=== PATIENT | female | born 1980 | race Caucasian/White ===

== ENCOUNTER 2018-09-11 04:23 | Emergency (ER) | payer OTHER ==
[2018-09-11 06:09] LABS: #Basophils 0.1 thou/uL (0.0-0.2); #Eosinphils 0.2 thou/uL (0.0-0.7); #Lymphocytes 1.3 thou/uL (1.20-3.40); #Monocytes 0.5 thou/uL (0.11-0.59); #Neutrophils 7.3 thou/uL (1.40-6.50); %Basophils 0.6 % (0.0-1.0); %Eosinophils 2.1 % (0.0-10.0); %Lymphocytes 13.7 % (21.0-51.0); %Monocytes 5.3 % (0.0-10.0); %Neutrophils 78.3 % (42.0-75.0); Hemoglobin 12.8 g/dL (12.0-16.0); Mean Corpuscular HGB CONC 34.5 g/dL (32.0-36.0); Mean Corpuscular Hemoglobin 31.6 pg (27.0-31.0); Mean Corpuscular Volume 91.4 fL (78.0-98.0); Mean Platelet Volume 7.3 fL (7.4-10.4); Platelet Count 219 thou/uL (130-400); RBC Distribution Width 12.4 % (11.5-14.5); Red Blood Cell (RBC) Count 4.06 mill/uL (4.20-5.40); White Blood Cell (WBC) Count 9.3 thou/uL (4.8-10.8)
[2018-09-11 06:30] LABS: ALT (SGPT) 21 U/L (8-55); AST (SGOT) 37 U/L (5-34); Albumin 3.7 g/dL (3.5-5.0); Alkaline Phosphatase 42 U/L (40-150); Anion Gap 9 mmol/L (10-20); BUN (Urea Nitrogen) 8 mg/dL (7.0-18.7); Bilirubin, Total 0.3 mg/dL (0.2-1.2); Calc. Creatinine Clearance 0 mL/min (70-130); Calcium 9.1 mg/dL (7.8-10.44); Carbon Dioxide 25 mmol/L (22-29); Chloride 104 mmol/L (98-107); Estimated GFR-MDRD Greater than 90; Globulin 2.4 g/dL (2.4-3.5); Glucose 86 mg/dL (70-105); Protein, Total 6.1 g/dL (6.0-8.3); Sodium 134 mmol/L (136-145)
[2018-09-11 07:31] LABS: Bilirubin Negative (Negative); Blood, Urine Negative (Negative); Clarity CLEAR (Clear); Glucose, Urine (Dipstick) Negative (Negative); Leukocyte Negative (Negative); Nitrite Negative (Negative); Protein, Urine (Dipstick) Negative (Neg-Trace); Urobilinogen 0.2 mg/dL (0.2-1.0)
[2018-09-11] MEDS ORDERED: Sucralfate 1 GM/10 ML UDCUP ONE (07:43)
--- NOTE | 2018-09-11 08:12 | ULT ---
OBSTETRICAL ULTRASOUND: INDICATION: Pelvic cramping and pain without bleeding. COMPARISON: None. FINDINGS: There is a single live intrauterine gestation in vertex presentation. Placenta is posterior in locat ion without evidence of previa. SANTIAGO appeared adequate. Cardiac activity is noted at 140 b.p.m. Limited survey of the stomach, heart, cord insertion, 3-vessel cord, and spine appear within no rmal limits. The cervical length was 3.5 cm. Estimated weight is 225 gm. IMPRESSION: 1. Single live intrauterine gestation. 2. Limited survey. Recommend a followup full survey in 2 weeks to fully evaluate the fe varun anatomy. 3. Estimated gestational age by ultrasound is 18 weeks and 0 days. Estimated due date 02/12/2019. POS: JUAN J
== END 2018-09-11 08:13 | disposition home or self-care (01) ==
LOC: ERS 04:23
DX: O09.522 Supervision of elderly multigravida, second trimester (principal); O99.89 Other specified diseases and conditions complicating pregnancy, childbirth and the puerperium; R10.31 Right lower quadrant pain; R10.32 Left lower quadrant pain; Z3A.18 18 weeks gestation of pregnancy
CPT/HCPCS: 36415; 76856; 80053; 81003; 83690; 85025; 86900; 86901; 93976

== ENCOUNTER 2018-10-02 12:31 | Day surgery (SDC) | payer OTHER ==
[~2018-10-02 12:31] MED LIST: Bupivacaine 0.25% HCL 30 ML VIAL ONE
--- NOTE | 2018-10-02 13:40 | HP ---
TIME OF EVALUATION: 1310 hours. REASON FOR EVALUATION: Profuse vaginal bleeding at 21 weeks. This is a patient of Dr. Shaw. HISTORY OF PRESENT ILLNESS: This is a 38-year-old, G5, P2, SAB 2, with a history of at 35 and 36 weeks. By EDC, she is now 21 weeks. This morning at 1100 hours, she was having intercourse with her and intercourse was interrupted by profuse vaginal bleeding. There were no contractions, no rupture of membranes, and no fever. The patient denies previous occurrence. She has no lightheadedness or loss of consciousness. She denies physical trauma/abuse by . When she arrived to the ER, she was still having profuse vaginal bleeding. PAST MEDICAL HISTORY: Negative. PAST SURGICAL HISTORY: Tonsils and adenoids and ACL. SOCIAL HISTORY: Negative for alcohol, tobacco, or drug use. OB HISTORY: Significant for prior vaginal deliveries that were early at 35 and 36 weeks. 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 ALLERGIES: TO CODEINE. REVIEW OF SYSTEMS: Complete review of systems was drawn and is otherwise complete and is only positive as stated in the HPI. PHYSICAL EXAMINATION: VITAL SIGNS: Blood pressure is 118/58, pulse 72, O2 saturation is 97%, and temperature is 98.2. GENERAL: She is in no acute distress and there was no active vaginal bleeding at this time. : Vaginal exam was deferred as we are unclear about placental location. ASSESSMENT: This is a 38-year-old, G5, P2, with a history of at 35 and 36 weeks (late ) with intercourse induced vaginal bleeding (vaginal intercourse). PLAN: 1. Stat OB ultrasound for placental location. 2. Stat H and H. 3. IV fluid hydration. 4. Type and cross and Rh type. 5. Check cervical length. Since we cannot assess her cervix digitally/by hand, we will use a surrogate, which is the ultrasound, to look for dilation, prolapsing membranes, or a short cervix. 6. Expectant management for now. 7. I suspect based on the history that she may have a low-lying/previa based on irritation of the cervix with intercourse. For now, we are awaiting stat lab work and ultrasound to guide further management. Job ID: [id number]
[2018-10-02 13:44] LABS: Hemoglobin 12.2 g/dL (12.0-16.0); Mean Corpuscular HGB CONC 34.2 g/dL (32.0-36.0); Mean Corpuscular Hemoglobin 31.9 pg (27.0-31.0); Mean Corpuscular Volume 93.2 fL (78.0-98.0); Mean Platelet Volume 7.4 fL (7.4-10.4); Platelet Count 206 thou/uL (130-400); RBC Distribution Width 12.3 % (11.5-14.5); Red Blood Cell (RBC) Count 3.81 mill/uL (4.20-5.40); White Blood Cell (WBC) Count 10.1 thou/uL (4.8-10.8)
[2018-10-02 14:30] VITALS: BMI 25.5
--- NOTE | 2018-10-02 15:02 | PDOC.EVN ---
Event Note - Event Note Event Note: At 1445: L&D triage Bedside eval after sono. Sono with no previa (post placenta); CX length was 3.1 cm No active VB now I performed SSE after procedure explained. partner also present for SSE SSE with no evidence LOF, VB, CX grossly closed, no lacerations in vaginal murcia. I helped the partner see the cervix as I explained what "normal was" No evidence PTL or jeopardy. RH type pos (A+) OK for home care DX: Postcoital bleed, NOS
--- NOTE | 2018-10-02 16:08 | ULT ---
OBSTETRIC SONOGRAM: HISTORY: Second trimester gestation. Vaginal bleeding. FINDINGS: Multiple transabdominal sonographic images. Single intrauterine gestation in cephalic presentation. Cervix closed and 4.0 cm. No evidence of previa. Grade 0 placenta is posterior. Amniotic fluid is within normal limits. spine and kidneys are intact as visualized. No gross intracranial abnormalities apparent. Four-chamber heart shows motion at 147 b.p.m. Three-vessel cord shows a normal insertion. Measurements are as follows: BIPARIETAL DIAMETER 22 weeks 2 days HEAD CIRCUMFERENCE 21 weeks 4 days ABDOMINAL CIRCUMFERENCE 21 weeks 1 day FEMUR LENGTH 20 weeks 3 days Estimated date of delivery based on today's sonogram 02/10/2019. [place] 44th percentile. IMPRESSION: Single viable intrauterine gestation with estimated gestational age based on today's sonogram of 21 w eeks 2 days. POS: JAZLYN
== END 2018-10-02 15:00 | disposition home health service (06) ==
LOC: L&D/OP 12:31
PROVIDERS: ATTEND Obstetrics & Gynecology
DX: O46.92 Antepartum hemorrhage, unspecified, second trimester (principal); Z3A.21 21 weeks gestation of pregnancy; Z90.89 Acquired absence of other organs; Z88.5 Allergy status to narcotic agent; Z79.899 Other long term (current) drug therapy; Z98.890 Other specified postprocedural states
CPT/HCPCS: 36415; 76805; 85027; 86900; 86901; 99283; S0020

== ENCOUNTER 2018-12-08 15:52 | Observation (INO) | payer OTHER ==
[2018-12-08] MEDS ORDERED: Ondansetron PF 4 MG/2 ML Vial IVP PRN (16:12)
[2018-12-08] MEDS ORDERED: Promethazine HCl 25 MG/ML VIAL IM PRN (16:12)
[2018-12-08] MEDS ORDERED: Dextrose 5%-Lactated Ringers 1,000 ML IV SCH (16:15)
[2018-12-08 16:29] VITALS: BMI 27.4
[2018-12-08] MEDS ORDERED: NIFEdipine XL 30 MG TAB PO SCH (16:30)
[2018-12-08 16:44] VITALS: BP 110/56; TEMP 98.2
[2018-12-08] MEDS ORDERED: hydrOXYzine Pamoate 25 mg Capsule PO SCH (18:30)
[2018-12-08 21:04] LABS: Bilirubin Negative (Negative); Blood, Urine Negative (Negative); Clarity CLEAR (Clear); Glucose, Urine (Dipstick) Negative (Negative); Leukocyte Negative (Negative); Nitrite Negative (Negative); Protein, Urine (Dipstick) Negative (Neg-Trace); Specific Gravity, Urine 1.012 (1.002-1.036)
[2018-12-08 21:06] LABS: Bacteria/HPF None Seen HPF (None Seen); Hyaline Casts/LPF 0-3 HYALINE CAST LPF (0-3 Hyaline); Pathc Cast-AUWi Flag 0.27 (0-2.49); RBC/HPF 0-3 HPF (0-3); Squamous Epithelial 0-3 HPF (0-3); WBC/HPF 0-3 HPF (0-3)
[2018-12-09] MEDS ORDERED: NIFEdipine XL 30 MG TAB PO SCH (09:00)
== END 2018-12-09 08:20 | disposition home health service (06) ==
LOC: L&D/OP 15:52 → L&D 18:19
PROVIDERS: ADMIT Obstetrics & Gynecology; ATTEND Obstetrics & Gynecology
DX: O47.03 False labor before 37 completed weeks of gestation, third trimester (principal); O09.513 Supervision of elderly primigravida, third trimester; Z3A.30 30 weeks gestation of pregnancy; Z79.899 Other long term (current) drug therapy; Z88.5 Allergy status to narcotic agent
CPT/HCPCS: 81001; 96360; 96361; G0378; Q0177

== ENCOUNTER 2019-01-20 09:45 | Inpatient (IN) | payer OTHER ==
[2019-01-20] MEDS ORDERED: Carboprost 250 MCG/ML AMP IM PRN (10:25)
[2019-01-20] MEDS ORDERED: Promethazine HCl 25 MG/ML VIAL IM PRN ×2 (10:25→15:10)
[2019-01-20] MEDS ORDERED: Ondansetron PF 4 MG/2 ML Vial IVP PRN ×3 (10:25→19:05)
[2019-01-20] MEDS ORDERED: Lidocaine 1% (PF) 30 ML VIAL SC PRN (10:25)
[2019-01-20] MEDS ORDERED: Ibuprofen 800 MG TAB PO PRN (10:25)
[2019-01-20] MEDS ORDERED: Diphenoxylate HCl/Atropine Tablet PO PRN (10:25)
[2019-01-20] MEDS ORDERED: Misoprostol 200 MCG TAB PR PRN (10:25)
[2019-01-20] MEDS ORDERED: NS / Oxytocin 40 units/1000ml 1,000 ML IV PRN (10:25)
[2019-01-20] MEDS ORDERED: Acetaminophen 500 MG TAB PO PRN (10:25)
[2019-01-20] MEDS ORDERED: Meperidine HCl/PF 25 MG/ML VIAL IM/IV PRN (10:25)
[2019-01-20] MEDS ORDERED: Methylergonovine 0.2 MG/ML VIAL IM PRN (10:25)
[2019-01-20] MEDS ORDERED: Fentanyl 4 mcg/Bup 0.1% Cadd 100 ML ONE (11:00)
[2019-01-20 11:02] LABS: Hemoglobin 12.6 g/dL (12.0-16.0); Mean Corpuscular HGB CONC 34.1 g/dL (32.0-36.0); Mean Corpuscular Hemoglobin 29.6 pg (27.0-31.0); Mean Corpuscular Volume 86.9 fL (78.0-98.0); Mean Platelet Volume 8.4 fL (7.4-10.4); Platelet Count 201 thou/uL (130-400); RBC Distribution Width 12.2 % (11.5-14.5); Red Blood Cell (RBC) Count 4.25 mill/uL (4.20-5.40); White Blood Cell (WBC) Count 8.4 thou/uL (4.8-10.8)
[2019-01-20] MEDS: Lactated Ringer's 1,000 ML IV SCH ×2 (11:26→13:58)
[2019-01-20] MEDS ORDERED: Fentanyl 100 MCG/2 ML VIAL ONE (11:33)
[2019-01-20] MEDS ORDERED: Fentanyl 100 MCG/2 ML VIAL EPIDURAL ONE (11:45)
[2019-01-20 11:49] LABS: HBSAg Index 0.26 S/CO (0-0.99); Hep B Surf Ag Non-Reactive S/CO (NonReactive); Syphilis Antibody Nonreactive (Nonreactive); Syphilis Antibody Index 0.05 S/CO (<1.00 Non-Reactive)
[2019-01-20 12:34] VITALS: BMI 27.8
[2019-01-20] MEDS ORDERED: NS w/ Oxytocin 10 units 500 ML ONE (14:04)
[2019-01-20] MEDS ORDERED: NS w/ Oxytocin 10 units 500 ML IV SCH (14:15)
[2019-01-20] MEDS ORDERED: ePHEDrine/0.9% NaCl/PF SYRINGE 50 mg/10 ml ONE (15:00)
[2019-01-20] MEDS ORDERED: Bupivacaine 0.25% HCL 30 ML VIAL ONE (15:00)
[2019-01-20] MEDS ORDERED: Acetaminophen 325 MG TAB PO PRN (15:10)
[2019-01-20] MEDS ORDERED: diphenhydrAMINE 50 MG/ML VIAL IVP PRN (15:10)
[2019-01-20] MEDS ORDERED: Naloxone HCl 0.4 mg/ml Vial IVP PRN ×2 (15:10)
[2019-01-20] MEDS ORDERED: ePHEDrine/0.9% NaCl/PF SYRINGE 50 mg/10 ml SLOW IVP PRN (15:10)
[2019-01-20] MEDS ORDERED: Lactated Ringer's 500 ML IV PRN (15:10)
[2019-01-20] MEDS ORDERED: Fentanyl 4 mcg/Bupivacaine 0.1% Cassette 100 ML EPIDURAL SCH (15:15)
[2019-01-20] MEDS ORDERED: Communication Order-Pharmacy FS SCH (15:15)
[2019-01-20] MEDS ORDERED: Misoprostol 200 MCG TAB VAG PRN (19:05)
[2019-01-20] MEDS ORDERED: diphenhydrAMINE 25 MG CAP PO PRN (19:05)
[2019-01-20] MEDS ORDERED: hydrALAZINE 20 MG/ML VIAL SLOW IVP PRN (19:05)
[2019-01-20] MEDS ORDERED: Zolpidem Tartrate 5 MG TAB PO PRN (19:05)
[2019-01-20] MEDS ORDERED: Acetaminophen/Codeine 30-300mg Tablet PO PRN (19:05)
[2019-01-20] MEDS ORDERED: Bisacodyl 10 MG SUPP PR PRN (19:05)
[2019-01-20] MEDS ORDERED: Lanolin Ointment 7 GM TUBE TOP PRN (19:05)
[2019-01-20] MEDS ORDERED: Preparation H Ointment 28 GM TUBE PR PRN (19:05)
[2019-01-20] MEDS ORDERED: Milk Of Magnesia 30 ML UDCUP PO PRN (19:05)
[2019-01-20] MEDS ORDERED: Benzocaine-Menthol 82.5 ML CAN TOP PRN (19:05)
[2019-01-20] MEDS ORDERED: Adacel (T-DAP) 0.5 ML SYRINGE IM ONE (19:05)
[2019-01-20] MEDS ORDERED: traMADol HCl 50 MG TAB PO PRN (19:06)
[2019-01-20] MEDS ORDERED: NS / Oxytocin 40 units/1000ml 1,000 ML IV SCH (19:15)
[2019-01-21] MEDS ORDERED: Ibuprofen 800 MG TAB ONE (03:52)
[2019-01-21] MEDS: Ibuprofen 800 MG TAB PO SCH ×4 (10:40→21:10)
[2019-01-21] MEDS: Docusate Calcium (SURFAK) 240 MG CAP PO SCH ×3 (10:40→21:10)
[2019-01-21] MEDS: Ferrous Sulfate 325 MG TAB PO SCH (12:59)
[2019-01-21] MEDS: Prenatal Vitamin 1 TAB PO SCH (13:01)
[2019-01-21] MEDS ORDERED: traMADol HCl 50 MG TAB PO PRN (23:42)
[2019-01-21] MEDS ORDERED: Zolpidem Tartrate 5 MG TAB PO PRN (23:43)
[2019-01-22] MEDS: Ibuprofen 800 MG TAB PO SCH (06:22)
[2019-01-22] MEDS: Ferrous Sulfate 325 MG TAB PO SCH (08:29)
[2019-01-22] MEDS: Docusate Calcium (SURFAK) 240 MG CAP PO SCH (08:31)
[2019-01-22] MEDS: Prenatal Vitamin 1 TAB PO SCH (08:31)
[2019-01-22 08:35] VITALS: BP 108/56; TEMP 98.1
== END 2019-01-22 12:35 | disposition home or self-care (01) | DRG 807 ==
LOC: L&D 09:56 → 3SW 21:00
PROVIDERS: ADMIT Obstetrics & Gynecology; ATTEND Obstetrics & Gynecology
PROC: 10E0XZZ Delivery of Products of Conception, External Approach (ICD-10-PCS; principal; 2019-01-20)
PROC: 0HQ9XZZ Repair Perineum Skin, External Approach (ICD-10-PCS; 2019-01-20)
DX: O70.0 First degree perineal laceration during delivery (principal); Z37.0 Single live birth; O71.82 Other specified trauma to perineum and vulva; Z3A.37 37 weeks gestation of pregnancy
CPT/HCPCS: 51702; 85027; 86780; 86850; 86900; 86901; 87340; 90715; J2001; J2405; J2590; J3010; S0020